=== PATIENT | female | born 1995 | race African-American/Black ===

== ENCOUNTER 2017-05-02 18:31 | Emergency (ER) | payer OTHER ==
[~2017-05-02] VITALS: Ht 157.5 cm; Wt 66.7 kg
--- NOTE | ~2017-05-02 | EKG ---
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
[~2017-05-02 18:31] MED LIST: AMOXICILLIN 50500 M1 PO; AZITHROMYCIN 2250 MG PO; CLARITIN10 MG PO; ELIMITE60 GM TP; FLONASE 0.05%50 MCG NASAL; FLOVENT; IBUPROFEN 600600 M1 PO; IBUPROFEN 800800 M1 PO; IBUPROFEN 800800 MG PO; LOTRIMIN30 GM TP; NORCO 5-325 TA1 EACH PO; PREDNISONE 10 M10 M1 PO; PROAIR HFA8.5 GM IH; PROVENTIL IH; SUDOGEST30 MG PO; VALIUM2 MG PO; VENTOLIN HFA 1818 GM INH; VENTOLIN HFA INH8 GM IH
[2017-05-02 19:28] LABS: HEMATOCRIT 34.1 % (37.0-47.0); MCH 21.5 pg (26.0-34.0); MCHC 32.3 g/dL (28.0-37.0); MCV 66.3 fL (80.0-100.0); PLATELET COUNT 330 thou/uL (150-400); RBC 5.14 mil/uL (4.20-5.00); RDW 17.4 % (10.5-14.5); WBC 7.3 thou/uL (4.0-11.0)
[2017-05-02 19:29] LABS: MANUAL DIFF YES
[2017-05-02 19:36] LABS: ANION GAP 10 mmol/L (7-16); BUN 7 mg/dL (7-18); CALCIUM 9.2 mg/dL (8.5-10.1); CHLORIDE 105 mmol/L (98-107); CO2 23 mmol/L (21-32); CREATININE 0.7 mg/dL (0.6-1.0); GLUCOSE 98 mg/dL (74-106); SODIUM 138 mmol/L (136-145)
[2017-05-02 19:46] LABS: TROPONIN-I < 0.04 ng/mL (<0.06)
[2017-05-02 20:14] LABS: ABSOLUTE NEUTROPHILS 4.1 thou/uL (1.4-8.2); ANISOCYTOSIS 1+; TOTAL CELL COUNT 100
[2017-05-02 20:15] LABS: HYPOCHROMASIA 1+; MICROCYTES 3+; POLYCHROMASIA OCCASIONAL
[2017-05-02] MEDS ORDERED: NAPROSYN500 MG PO (21:06)
[2017-05-02] MEDS ORDERED: VENTOLIN HFA 1818 GM INH (21:25)
[2017-05-02 21:29] VITALS: BP 105/90
== END 2017-05-02 21:30 | disposition home or self-care (01) ==
LOC: ER 18:31
PROVIDERS: Emergency Medicine
DX: R07.9 Chest pain, unspecified (principal); J45.909 Unspecified asthma, uncomplicated; Z88.5 Allergy status to narcotic agent

== ENCOUNTER 2018-03-13 00:11 | Emergency (ER) | payer OTHER ==
[~2018-03-13] VITALS: Ht 160 cm; Wt 65.8 kg
--- NOTE | ~2018-03-13 | EKG ---
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 03/13/18 0845 0130 0130 Roque Wood MD, FACC /EPI
[~2018-03-13 00:11] MED LIST changes: +NAPROSYN500 MG PO
[2018-03-13 01:26] LABS: HEMATOCRIT 33.7 % (37.0-47.0); HEMOGLOBIN 10.6 gm/dL (12.0-15.0); MCH 21.4 pg (26.0-34.0); MCHC 31.5 g/dL (28.0-37.0); RBC 4.95 mil/uL (4.20-5.00); RDW 17.2 % (10.5-14.5); WBC 5.7 thou/uL (4.0-11.0)
[2018-03-13 01:33] LABS: ANION GAP 11 mmol/L (7-16); BUN 7 mg/dL (7-18); CALCIUM 8.9 mg/dL (8.5-10.1); CHLORIDE 103 mmol/L (98-107); CO2 23 mmol/L (21-32); CREATININE 0.8 mg/dL (0.6-1.0); GLUCOSE 94 mg/dL (74-106); POTASSIUM 3.8 mmol/L (3.5-5.1); SODIUM 137 mmol/L (136-145)
[2018-03-13 01:42] LABS: TROPONIN-I <0.06 ng/mL (<0.06)
[2018-03-13] MEDS ORDERED: MOBIC15 MG PO (03:00)
[2018-03-13 03:02] VITALS: BP 158/87
== END 2018-03-13 03:05 | disposition home or self-care (01) ==
LOC: ER 00:11
PROVIDERS: Emergency Medicine
DX: R07.9 Chest pain, unspecified (principal); M54.6 Pain in thoracic spine; R06.02 Shortness of breath; R42 Dizziness and giddiness; J45.909 Unspecified asthma, uncomplicated; Z88.5 Allergy status to narcotic agent